=== PATIENT | female | born 1930 | race Caucasian/White ===

== ENCOUNTER → 2017-12-29 | Outpatient (CLI) | payer MEDICARE ==
[~2017-12-29] MED LIST: ALEN70 PO; ALPR.25 PO; CIPR500 PO; Colace100 MG PO; DOCU100 PO; ENOX30I SC; ESTNOR PO; ESTR2 PO; GABA100; GABA300 PO; HYDR-86; HYDR-86 PO; LATA.005SO BOTHEYES; Lovenox60 MG/0.6 SC; MIRT15ST MM; Milk Of Ma800 MG/5 M PO; Miralax17 GM PO; Norco 5-325 Ta1 EACH PO; OMEP20ER PO; ONDA4 PO; OXYACE5T PO; PROM25 PO; Percocet 5-3251 EACH PO; SENN187 PO
== END ==
LOC: LAB SHORT 08:14 → PLD 08:14
DX: D48.5 Neoplasm of uncertain behavior of skin (principal)
CPT/HCPCS: 88305

== ENCOUNTER → 2018-10-14 | Outpatient (CLI) | payer OTHER | END | disposition home or self-care (01) | LOC: LAB SHORT 09:49 → PLD 09:49 | DX: D48.5 Neoplasm of uncertain behavior of skin (principal) | CPT/HCPCS: 88305 ==